=== PATIENT | male | born 1955 | race Caucasian/White ===

== ENCOUNTER 2021-02-17 17:46 | Emergency (ER) | payer OTHER ==
[~2021-02-17] VITALS: Ht 185.4 cm; Wt 143.2 kg
--- NOTE | 2021-02-17 18:06 | PHYS DOC ---
Past Medical History Past Medical History: Diabetes-Type I, Renal Disease Past Surgical History: Other Additional Past Surgical Histo: UNK General Adult HPI: HPI: Patient is a 65-year-old male that presents today via [facility] for hypoglycemia. Patient was found in his car in the middle of the road unresponsive, EMS states that his blood sugar upon their arrival was 33 they gave him an amp of D 50 and some oral glucose his glucose talia to 96 at that point time patient was awake alert and orientated and appropriate. Patient states he took insulin today at noon he is an insulin-dependent diabetic on a sliding scale he said for lunch he had a bowl of cereal, with no protein. Patient states he usually only eats once daily. Patient's primary care tata hickman is at [facility]. Patient states that he did see his pocket marker today for his renal disease due to his diabetes. Glucose checked at this time was 71 patient will be given a full meal. Patient denies chest pain, shortness of air, or fever at this time. Review of Systems: Review of Systems: Constitutional: Denies fever or chills. [] Eyes: Denies change in visual acuity. [] HENT: Denies nasal congestion or sore throat. [] Respiratory: Denies cough or shortness of breath. [] Cardiovascular: Denies chest pain or edema. [] GI: Denies abdominal pain, nausea, vomiting, bloody stools or diarrhea. [] : Denies dysuria. [] Musculoskeletal: Denies back pain or joint pain. [] Integument: Denies rash. [] Neurologic: Denies headache, focal weakness or sensory changes. [] Endocrine: Hypoglycemia Lymphatic: Denies swollen glands. [] Psychiatric: Denies depression or anxiety. [] Heart Score: C/O Chest Pain: N/A Risk Factors: Risk Factors: DM, Current or recent (<one month) smoker, HTN, HLP, family history of CAD, obesity. Risk Scores: Score 0 - 3: 2.5% MACE over next 6 weeks - Discharge Home Score 4 - 6: 20.3% MACE over next 6 weeks - Admit for Clinical Observation Score 7 - 10: 72.7% MACE over next 6 weeks - Early Invasive Strategies Physical Exam: PE: Constitutional: Well developed, well nourished, no acute distress, non-toxic appearance. [] HENT: Normocephalic, atraumatic, bilateral external ears normal, oropharynx moist, no oral exudates, nose normal. [] Eyes: PERRLA, EOMI, conjunctiva normal, no discharge. [] Neck: Normal range of motion, no tenderness, supple, no stridor. [] Cardiovascular:Heart rate regular rhythm, no murmur [] Lungs & Thorax: Bilateral breath sounds clear to auscultation [] Abdomen: Bowel sounds normal, soft, no tenderness, no masses, no pulsatile masses. [] Skin: Warm, dry, no erythema, no rash. [] Back: No tenderness, no CVA tenderness. [] Extremities: No tenderness, no cyanosis, no clubbing, ROM intact, no edema. [] Neurologic: Alert and oriented X 3, normal motor function, normal sensory function, no focal deficits noted. [] Psychologic: Affect normal, judgement normal, mood normal. [] Current Patient Data: Labs: Laboratory Tests Test 02/17/21 17:59 02/17/21 19:10 Glucose (Fingerstick) 71 mg/dL 127 mg/dL Laboratory Tests Test 02/17/21 17:59 Glucose (Fingerstick) 71 mg/dL (70-99) Vital Signs: Vital Signs Date Time Temp Pulse Resp B/P (MAP) Pulse Ox O2 Delivery O2 Flow Rate FiO2 02/17/21 19:11 44 15 153/65 (94) 99 Room Air 02/17/21 18:06 95.7 40 18 164/76 (105) 99 Room Air 95.7 EKG: EKG: [] Radiology/Procedures: Radiology/Procedures: [] Course & Med Decision Making: Course & Med Decision Making Pertinent Labs and Imaging studies reviewed. (See chart for details) 1909 reassessment of patient shows his Accu-Chek at this time is 127 after eating a sandwich chips and drinking some apple juice and Jessie. Patient st ates he is feeling much better, he says that he took 14 units of insulin today at around noon and only ate a bowl of cereal he says his Accu-Chek prior to taking 14 units was 150, he says he did not eat nearly enough to cover that. Patient is agreeable to going home eating a well-balanced meal this evening taken his home insulin as directed, calling his primary care physician in the morning to let him know of this incident. Will discharge patient home. Caroline Disclaimer: Caroline Disclaimer: This electronic medical record was generated, in whole or in part, using a voice recognition dictation system. Departure Departure Impression: Primary Impression: Hypoglycemia due to insulin Disposition: HOME / SELF CARE / HOMELESS Condition: STABLE Patient Instructions: Hypoglycemia (Low Blood Sugar) Additional Instructions: Follow-up in the a.m. with Dr. Guidry your primary care physician and inform him of your low blood sugar since he manages your insulin dosage. Make sure you eat 3 well-balanced meals a day while taking your insulin, continue to check your blood sugar before taking your insulin every day. Return to the emergency department if you have any other concerns with hypoglycemia. CARLA PULLIAM APRN Feb 17, 2021 18:06
[2021-02-17 19:11] VITALS: BP 153/65
== END 2021-02-17 19:55 | disposition home or self-care (01) ==
LOC: ER 17:46
DX: E10.649 Type 1 diabetes mellitus with hypoglycemia without coma (principal); E10.22 Type 1 diabetes mellitus with diabetic chronic kidney disease; N18.9 Chronic kidney disease, unspecified; Z79.4 Long term (current) use of insulin
CPT/HCPCS: 82962; 99283